=== PATIENT | male | born 1980 | race Caucasian/White ===

== ENCOUNTER 2019-09-08 14:00 | Emergency (ER) | payer MEDICAID ==
[~2019-09-08] VITALS: Ht 167.6 cm; Wt 63.5 kg
[2019-09-08 14:12] VITALS: BP 122/78
--- NOTE | 2019-09-08 14:15 | NUR ---
Patient ambulated to bed 8. RN evaluating patient at bedside.
--- NOTE | 2019-09-08 14:23 | NUR ---
septic tank service technician at bedside.
[2019-09-08] MEDS ORDERED: IBUPROFEN 600 MG TAB PO ONE (14:55)
--- NOTE | 2019-09-08 15:02 | NUR ---
39 Y/O C/O LEFT HAND, WRIST, FOREARM PAIN POST TWISTING EXTREMITY TOO FAR WHEN MOVING OBJECTS AT WORK FROM ONE AREA TO ANOTHER ON SUNDAY. ROTAING EXTREMITY AGRAVATES PAIN. DENIES N/V/D; SKIN IS PINK/WARM/DRY; AAOX4 WITH EVEN AND STEADY GAIT; PT DENIES ANY FEVER, CP, SOB, OR COUGH AT THIS TIME; PATIENT STATES PAIN OF 3/10 AT THIS TIME; VSS; BED LOW AND LOCKED, 1 SIDERAIL UP, PT IN POSITION OF COMFORT. VSS. RR EVEN AND UNLABORED. MEDICAL HX: DENIES NKA
--- NOTE | 2019-09-08 15:23 | NUR ---
APPLIED TWILA WRAP TO LEFT WRIST WITHOUT ANY ISSUES
--- NOTE | 2019-09-08 15:23 | NUR ---
POST TWILA WRAP APPLIED TO LEFT HAND, CMS PRESENT, NO ISSUES
[2019-09-08 15:25] VITALS: BP 120/76
== END 2019-09-08 15:24 | disposition home or self-care (01) ==
LOC: MED 14:00
DX: S66.912A Strain of unspecified muscle, fascia and tendon at wrist and hand level, left hand, initial encounter (principal); X58.XXXA Exposure to other specified factors, initial encounter; Y93.89 Activity, other specified; Y92.89 Other specified places as the place of occurrence of the external cause; Y99.8 Other external cause status
CPT/HCPCS: 73130; 99283; Q0092

== ENCOUNTER 2019-09-26 22:26 | Emergency (ER) | payer MEDICAID ==
[~2019-09-26] VITALS: Ht 167.6 cm; Wt 62.6 kg
[2019-09-26 22:42] VITALS: BP 137/85
[2019-09-26 22:57] VITALS: BP 137/85
== END 2019-09-26 22:55 | disposition home or self-care (01) ==
LOC: MED 22:26
DX: K05.10 Chronic gingivitis, plaque induced (principal)
CPT/HCPCS: 99283

== ENCOUNTER 2020-04-19 13:10 | Emergency (ER) | payer MEDICAID ==
[~2020-04-19] VITALS: Ht 167.6 cm; Wt 64.4 kg
[2020-04-19 13:13] VITALS: BP 131/94
[2020-04-19] MEDS ORDERED: LIDOCAINE MPF 1% 10 MG/ML VIAL INJ ONE (14:30)
[2020-04-19 16:04] VITALS: BP 128/88
== END 2020-04-19 16:04 | disposition home or self-care (01) ==
LOC: MED 13:10
DX: S01.85XA Open bite of other part of head, initial encounter (principal); F17.210 Nicotine dependence, cigarettes, uncomplicated; F12.90 Cannabis use, unspecified, uncomplicated; W54.0XXA Bitten by dog, initial encounter; Y93.89 Activity, other specified; Y92.89 Other specified places as the place of occurrence of the external cause; Y99.8 Other external cause status
CPT/HCPCS: 12013; 99283; J2001